=== PATIENT | female | born 2000 | race Caucasian/White ===

== ENCOUNTER 2023-09-16 15:50 | Emergency (ER) | payer OTHER ==
[~2023-09-16] VITALS: Ht 152.4 cm; Wt 54.4 kg
[2023-09-16 16:22] VITALS: BP_SYST 122; PULSE 67; RESP 18; TEMP 98.3; O2SAT 99
[2023-09-16 17:44] VITALS: BP_SYST 122; PULSE 67; RESP 18; TEMP 98.3; O2SAT 99
== END 2023-09-16 17:46 | disposition home or self-care (01) ==
LOC: SED 15:50
DX: S50.01XA Contusion of right elbow, initial encounter (principal); Z79.899 Other long term (current) drug therapy; W22.8XXA Striking against or struck by other objects, initial encounter; Y93.89 Activity, other specified; Y92.89 Other specified places as the place of occurrence of the external cause; Y99.8 Other external cause status
CPT/HCPCS: 99283